=== PATIENT | female | born 1945 | race Caucasian/White ===

== ENCOUNTER 2025-08-22 09:43 | Outpatient (CLI) | payer MEDICARE | END 2025-08-22 09:44 | disposition home or self-care (01) | LOC: CSHMRI 09:43 | PROVIDERS: ATTEND Surgery | DX: M50.322 Other cervical disc degeneration at C5-C6 level (principal); M47.812 Spondylosis without myelopathy or radiculopathy, cervical region; Z98.890 Other specified postprocedural states; M48.02 Spinal stenosis, cervical region; M48.03 Spinal stenosis, cervicothoracic region | CPT/HCPCS: 72050; 72125; 72141 ==

== ENCOUNTER 2025-10-23 10:54 | Outpatient (CLI) | payer MEDICARE | END 2025-10-23 10:55 | disposition home or self-care (01) | LOC: CSHRAD 10:54 | PROVIDERS: ATTEND Internal Medicine | DX: R06.02 Shortness of breath (principal); J98.6 Disorders of diaphragm; E03.9 Hypothyroidism, unspecified; I10 Essential (primary) hypertension; E11.9 Type 2 diabetes mellitus without complications; E78.00 Pure hypercholesterolemia, unspecified | CPT/HCPCS: 36415; 76000; 80053; 80061; 82785; 83036; 84439; 84443; 84481; 85025; 94060; 94618; 94664; 94726; 94729 ==